=== PATIENT | female | born 1980 | race Caucasian/White ===

== ENCOUNTER 2017-08-24 00:46 | Emergency (ER) | END 2017-08-24 09:26 | disposition home or self-care (01) ==

== ENCOUNTER 2018-11-06 03:41 | Emergency (ER) | payer BC ==
[~2018-11-06] VITALS: Ht 160 cm; Wt 57.6 kg
[2018-11-06 03:48] VITALS: BP 131/92; RESP 18; Ht 160 cm; Wt 57.6 kg
[2018-11-06] MEDS ORDERED: LIDOCAINE/MYLANTA 40 ML BTL PO STA (05:23)
--- NOTE | 2018-11-06 05:28 | ERD ---
ER Documentation Chief Complaint Chief Complaint states feels throat swelling on and off x 3 weeks. on atb. no tongue swell HPI This is a 38-year-old female presents to the emergency room for evaluation of throat pain. This patient was originally seen in ER 2 and stated "I do not want to see nurse practitioner, I want to see a doctor". The patient states that she has had throat pain for the past 3 weeks on and off. She states that she is taking omeprazole, Zantac, azithromycin, and is still having pain. She denies any fevers chills nausea or vomiting. ROS All systems reviewed and are negative except as per history of present illness. Medications Home Meds Active Scripts Sucralfate* (Carafate*) 1 Gm Tab, 1 GM PO QID for 14 Days, TAB Prov:MANINDER WASSERMAN DO 11/06/18 Allergies Allergies: Coded Allergies: No Known Allergies (Verified Allergy, Mild, 10/26/13) PMhx/Soc Medical and Surgical Hx: pt denies Medical Hx, pt denies Surgical Hx History of Surgery: No Anesthesia Reaction: No Hx Neurological Disorder: No Hx Respiratory Disorders: No Hx Cardiac Disorders: No Hx Psychiatric Problems: Yes (anxiety) Hx Miscellaneous Medical Probl: Yes (anemia) Hx Alcohol Use: No Hx Substance Use: No Hx Tobacco Use: No Smoking Status: Never smoker Physical Exam Vitals Vital Signs Date Temp Pulse Resp B/P (MAP) Pulse Ox O2 O2 Flow FiO2 Time Delivery Rate 11/06/18 98.6 99 18 131/92 100 03:48 (105) Physical Exam INITIAL VITAL SIGNS: Reviewed by me GENERAL: The patient is well developed and appropriate for usual state of health in no apparent distress HEENT: No pharyngeal erythema, no pharyngeal edema, no tonsillar swelling, no uvular swelling pupils equal, round, and reactive to light. EOMI. There is no scleral icterus. NECK: C-spine is soft and supple, there is no meningismus. There is no cervical lymphadenopathy. LUNGS: Clear to auscultation bilaterally. There are no rales, wheezes or rhonchi. HEART: Regular rate and rhythm, no murmurs, clicks, rubs or gallops. ABDOMEN: Soft, non-tender, non-distended. There are bowel sounds in all four quadrants. No rebound or guarding. EXTREMITIES: There is no peripheral cyanosis or edema. No focal swelling or erythema. NEUROLOGICAL: The patient moves all four extremities with 5/5 strength. Cranial nerves II - XII are intact. Normal gait. Alert and oriented SKIN: There is no apparent rash or petechiae. HEME/LYMPHATIC: There is no evidence of excessive bruising or lymphedema. PSYCHIATRIC: The patient is extremely anxious appearing Results 24 hrs Current Medications Medications Dose Sig/Nella Start Time Status Last (Trade) Ordered Route PRN Stop Time Admin Dose Reason Admin 40 ml ONCE STAT 11/06/18 DC Miscellaneous PO 05:23 Medication 11/06/18 05:24 (Gi Cocktail (2)) Procedures/MDM This 38-year-old female presents to the emergency room for evaluation of sore throat and painful swallowing. On my exam the patient has no signs of a peritonsillar abscess. She is tolerating secretions, not positioning, she does appear to be extremely anxious. The patient was given a GI cocktail in the emergency room. She does states she is feeling better, she has no subcutaneous crepitance, full range of motion of the neck, I doubt epiglottitis given her nontoxic-parents. the patient will be discharged home with a prescription for Carafate, and will be given a referral for outpatient gastroenterology. I advised her that she would likely need an endoscopy to determine whether or not this patient has any erosive ulcerations to the esophagus from underlying GERD Departure Diagnosis: Primary Impression: Sore throat Additional Impressions: GERD (gastroesophageal reflux disease) Anxiety Condition: MANINDER Reyes DO Nov 06, 2018 05:28
[2018-11-06] MEDS ORDERED: SUCR1TAB56 PO (05:38)
[2018-11-06 05:59] VITALS: PULSE 95
== END 2018-11-06 06:00 | disposition home or self-care (01) ==
LOC: FTE 03:41 → E/R 06:00
DX: J02.9 Acute pharyngitis, unspecified (principal); F41.9 Anxiety disorder, unspecified; K21.9 Gastro-esophageal reflux disease without esophagitis
CPT/HCPCS: 99283